=== PATIENT | male | born 2000 | race Caucasian/White ===

== ENCOUNTER 2021-12-04 03:03 | Emergency (ER) | payer OTHER, SELFPAY ==
[2021-12-04 03:10] VITALS: BP 135/65; PULSE 83; RESP 18; TEMP 36.4; O2SAT 99; BMI 26.4
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
== END 2021-12-04 06:21 | disposition home or self-care (01) ==
PROVIDERS: Emergency Provider Emergency Medicine Emergency Medical Services
DX: S01.112A Laceration without foreign body of left eyelid and periocular area, initial encounter (principal); Y04.2XXA Assault by strike against or bumped into by another person, initial encounter; Y93.9 Activity, unspecified; Y92.9 Unspecified place or not applicable; Y99.9 Unspecified external cause status
CPT/HCPCS: 12052; 99283; 99284